=== PATIENT | female | born 1985 | race Caucasian/White ===

== ENCOUNTER 2024-04-26 01:03 | Emergency (ER) | payer OTHER, SELFPAY ==
[2024-04-26 00:58] VITALS: BP 143/94; PULSE 89; RESP 18; TEMP 36.4; O2SAT 97
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
[2024-04-26] MEDS: Acetaminophen 500 MG TAB 1000 MG PO (02:11)
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
== END 2024-04-26 02:11 | disposition home or self-care (01) ==
LOC: ER 02:14
PROVIDERS: Emergency Provider Emergency Medicine
DX: S80.812A Abrasion, left lower leg, initial encounter (principal); S80.12XA Contusion of left lower leg, initial encounter; V48.6XXA Car passenger injured in noncollision transport accident in traffic accident, initial encounter
CPT/HCPCS: 99283; 73590